=== PATIENT | male | born 1975 ===

== ENCOUNTER → 2024-01-18 06:21 | Day surgery (SDC) | payer BC, SELFPAY | LOC: GI 06:21 | PROVIDERS: ATTENDING PHYSICIAN Internal Medicine | DX: K20.0 Eosinophilic esophagitis (principal); K22.89 Other specified disease of esophagus | CPT/HCPCS: 43239; 88305 ==

== ENCOUNTER → 2024-09-05 06:15 | Day surgery (SDC) | payer BC, SELFPAY | LOC: GI 06:15 | PROVIDERS: ATTENDING PHYSICIAN Internal Medicine | DX: K22.2 Esophageal obstruction (principal); K31.7 Polyp of stomach and duodenum; Z87.19 Personal history of other diseases of the digestive system | CPT/HCPCS: 43239; 88305 ==